=== PATIENT | male | born 1960 | race Caucasian/White ===

== ENCOUNTER 2017-06-23 20:23 | Observation (INO) | payer MEDICAID ==
[~2017-06-23] VITALS: Ht 175.3 cm; Wt 84.7 kg
[2017-06-23] MEDS ORDERED: ALBUTEROL/IPRATROPIUM 2.5MG/0.5MG, 3 ML ONE (20:50)
[2017-06-23] MEDS ORDERED: ALBUTEROL/IPRATROPIUM 2.5MG/0.5MG, 3 ML NPPB ONE (21:00)
[2017-06-23] MEDS ORDERED: ALBUTEROL SULFATE 2.5 MG/3 ML ONE (21:11)
[2017-06-23 21:14] LABS: HEMATOCRIT 49.3 % (39.2-51.8); HEMOGLOBIN 17.2 g/dL (13.7-18.0); WHITE BLOOD COUNT 3.8 x10^3/uL (3.4-10)
[2017-06-23 21:25] LABS: BLOOD UREA NITROGEN 19 mg/dL (7-18)
[2017-06-23] MEDS ORDERED: ALBUTEROL SULFATE 2.5 MG/3 ML NPPB ONE (21:30)
[2017-06-23] MEDS ORDERED: SODIUM CHLORIDE 0.9% 1,000ML IVBOLUS ONE (21:30)
[2017-06-23 21:33] LABS: ASPARTATE AMINO TRANSFERASE 36 U/L (15-37); IS PT STATUS REG ER OR PRE ER? YES
[2017-06-23] MEDS ORDERED: LORazepam 1MG TABLET PO ONE (22:30)
[2017-06-23] MEDS ORDERED: LORazepam 1MG TABLET ONE (22:42)
[2017-06-23] MEDS ORDERED: DOCUSATE 100 MG CAPSULE PO PRN (23:30)
[2017-06-23] MEDS ORDERED: AZITHROMYCIN 500 MG TABLET PO ONE (23:30)
[2017-06-23] MEDS ORDERED: ONDANSETRON ODT 4 MG PO PRN (23:30)
[2017-06-23] MEDS ORDERED: ENALAPRILAT 1.25 MG/ML, 2ML IVPush PRN (23:30)
[2017-06-23] MEDS ORDERED: ACETAMINOPHEN 325 MG TABLET PO PRN (23:30)
[2017-06-23] MEDS ORDERED: TEMAZEPAM 15 MG CAPSULE PO PRN (23:30)
[2017-06-23] MEDS ORDERED: GUAIFENESIN/DM 200-20MG, 10ML UDC PO PRN (23:30)
[2017-06-23] MEDS ORDERED: ALBUTEROL/IPRATROPIUM 2.5MG/0.5MG, 3 ML IPPB PRN (23:30)
[2017-06-23] MEDS: SODIUM CHLORIDE 0.9% 1,000 ML IV SCH (23:55)
[2017-06-24] MEDS: ENOXAPARIN 40 MG/0.4 ML SQ SCH ×2 (00:28→23:14)
[2017-06-24] MEDS: NICOTINE 21 MG/24 HR PATCH.TD24 TD SCH ×2 (00:28→23:13)
[2017-06-24 00:33] VITALS: BP 134/89
[2017-06-24 04:53] VITALS: BP 147/82
[2017-06-24 07:33] VITALS: BP 135/83
[2017-06-24] MEDS: SODIUM CHLORIDE 0.9% 1,000 ML IV SCH ×2 (08:50→15:28)
[2017-06-24] MEDS ORDERED: AZITHROMYCIN 250 MG TABLET PO SCH (09:00)
[2017-06-24] MEDS: ALBUTEROL/IPRATROPIUM 2.5MG/0.5MG, 3 ML NPPB SCH ×5 (09:01→22:35)
[2017-06-24] MEDS: methylPREDNISolone SOD SUCC 125 MG/2 ML IVPush SCH ×3 (12:00→23:14)
[2017-06-24 13:45] VITALS: BP 126/77
[2017-06-24 14:59] LABS: RAPID INFLUENZA A Negative (Negative); RAPID INFLUENZA B Negative (Negative)
[2017-06-24 19:30] VITALS: BP 131/84
[2017-06-25 03:00] VITALS: BP 115/70
[2017-06-25] MEDS: SODIUM CHLORIDE 0.9% 1,000 ML IV SCH (05:38)
[2017-06-25 06:12] LABS: HEMATOCRIT 49.3 % (39.2-51.8); HEMOGLOBIN 16.8 g/dL (13.7-18.0); WHITE BLOOD COUNT 6.7 x10^3/uL (3.4-10)
[2017-06-25 06:16] LABS: BLOOD UREA NITROGEN 17 mg/dL (7-18)
[2017-06-25] MEDS: methylPREDNISolone SOD SUCC 125 MG/2 ML IVPush SCH (06:26)
[2017-06-25 07:32] VITALS: BP 128/76
== END 2017-06-25 09:44 | disposition left against medical advice (07) ==
LOC: ED 21:53 → INTOOBSV 22:35 → EDIP 22:35 → 3NE 23:46
PROVIDERS: ADMIT Surgery; ATTEND Surgery
DX: J44.1 Chronic obstructive pulmonary disease with (acute) exacerbation (principal); R53.83 Other fatigue; E46 Unspecified protein-calorie malnutrition; I10 Essential (primary) hypertension; F17.210 Nicotine dependence, cigarettes, uncomplicated; Z91.19 Patient's noncompliance with other medical treatment and regimen; Z86.73 Personal history of transient ischemic attack (TIA), and cerebral infarction without residual deficits
CPT/HCPCS: 36415; 71020; 80048; 80053; 80061; 83735; 84100; 84484; 85025; 87400; 93005; 94640; 96361; 96372; 96374; 96376; 99291; G0378; J1650; J2930; J7030; J7512; J7613; J7620

== ENCOUNTER 2018-02-03 18:51 | Emergency (ER) | payer MEDICAID ==
[~2018-02-03] VITALS: Ht 172.7 cm; Wt 80.9 kg
[2018-02-03 18:55] VITALS: BP 122/80
[2018-02-03] MEDS ORDERED: FAMOTIDINE 20 MG TABLET ONE (19:07)
[2018-02-03] MEDS ORDERED: FAMOTIDINE 20 MG TABLET PO ONE (19:30)
== END 2018-02-03 19:22 | disposition home or self-care (01) ==
LOC: ED 19:00
DX: T14.8XXA Other injury of unspecified body region, initial encounter (principal); J44.9 Chronic obstructive pulmonary disease, unspecified; F17.210 Nicotine dependence, cigarettes, uncomplicated; W57.XXXA Bitten or stung by nonvenomous insect and other nonvenomous arthropods, initial encounter; Y93.89 Activity, other specified; Y92.830 Public park as the place of occurrence of the external cause; Y99.8 Other external cause status
CPT/HCPCS: 99284; J7512; Q0177

== ENCOUNTER 2020-03-06 13:51 | Emergency (ER) | payer MEDICAID ==
[~2020-03-06] VITALS: Ht 172.7 cm; Wt 83.2 kg
[2020-03-06 14:41] LABS: BASOPHILS # (AUTO) 0.03 x10^3/uL (0-0.1); BASOPHILS % (AUTO) 0 % (0-1); EOSINOPHILS # (AUTO) 0.16 x10^3/uL (0-0.4); EOSINOPHILS % (AUTO) 2 % (1-7); LYMPHOCYTES # (AUTO) 2.21 x10^3/uL (1-3.4); LYMPHOCYTES % (AUTO) 30 % (22-44); MD NO; MEAN CORPUSCULAR HEMOGLOBIN 30.8 pg (27.5-34.5); MEAN CORPUSCULAR HGB CONC 33.7 g/dL (33.2-36.2); MEAN CORPUSCULAR VOLUME 91.5 fL (81-97); MEAN PLATELET VOLUME 7.6 fL (7.4-10.4); MONOCYTES # (AUTO) 0.69 x10^3/uL (0.2-0.8); MONOCYTES % (AUTO) 10 % (2-9); NEUTROPHILS # (AUTO) 4.25 x10^3/uL (1.8-6.8); NEUTROPHILS % (AUTO) 58 % (42-75); PLATELET COUNT 263 x10^3/uL (130-400); RED BLOOD COUNT 5.29 x10^6/uL (4.38-5.82); RED CELL DISTRIBUTION WIDTH 13.2 % (9.4-14.8)
[2020-03-06 14:53] LABS: TROPONIN I < 0.015 ng/mL (0.000-0.045)
[2020-03-06 15:04] LABS: ANION GAP 8 mmol/L (5-15); CALCIUM 9.3 mg/dL (8.5-10.1); CHLORIDE 108 mmol/L (98-107); CREATININE 1.66 mg/dL (0.7-1.3)
[2020-03-06 15:38] VITALS: BP 142/95
--- NOTE | 2020-03-06 15:39 | NUR ---
TASK RN: PT RESTING IN [facility] ON MONITOR, NO NEEDS AT THIS TIME, CALL LIGHT WITHIN REACH. AWAITING RECHECK
== END 2020-03-06 16:12 | disposition home or self-care (01) ==
LOC: ED 15:50
DX: R07.89 Other chest pain (principal); L03.114 Cellulitis of left upper limb; J44.9 Chronic obstructive pulmonary disease, unspecified; F17.290 Nicotine dependence, other tobacco product, uncomplicated; Z86.73 Personal history of transient ischemic attack (TIA), and cerebral infarction without residual deficits; Z90.89 Acquired absence of other organs
CPT/HCPCS: 36415; 71045; 80048; 83880; 84484; 85025; 93005; 99285

== ENCOUNTER 2020-03-13 06:58 | Emergency (ER) | payer MEDICAID ==
[~2020-03-13] VITALS: Ht 175.3 cm; Wt 84.0 kg
[2020-03-13] MEDS ORDERED: SODIUM CHLORIDE 0.9% 1,000ML IV ONE (07:30)
[2020-03-13] MEDS ORDERED: HYDROmorphone 1 MG/ML, 1ML INJ IVPush PRN (07:30)
[2020-03-13] MEDS ORDERED: KETOROLAC 30 MG/1 ML IVPush ONE (07:30)
[2020-03-13] MEDS ORDERED: SODIUM CHLORIDE FLUSH 10ML SYR IVF ONE (07:30)
[2020-03-13] MEDS ORDERED: ONDANSETRON 2MG/ML, 2ML IVPush ONE (07:30)
[2020-03-13] MEDS ORDERED: KETOROLAC 30 MG/1 ML ONE (07:36)
[2020-03-13] MEDS ORDERED: ONDANSETRON 2MG/ML, 2ML ONE (07:36)
[2020-03-13] MEDS ORDERED: HYDROmorphone 1 MG/ML, 1ML INJ ONE (07:36)
[2020-03-13 07:55] LABS: BASOPHILS # (AUTO) 0.01 x10^3/uL (0-0.1); BASOPHILS % (AUTO) 0 % (0-1); EOSINOPHILS # (AUTO) 0.15 x10^3/uL (0-0.4); EOSINOPHILS % (AUTO) 2 % (1-7); LYMPHOCYTES # (AUTO) 1.39 x10^3/uL (1-3.4); LYMPHOCYTES % (AUTO) 21 % (22-44); MD NO; MEAN CORPUSCULAR HEMOGLOBIN 30.5 pg (27.5-34.5); MEAN CORPUSCULAR HGB CONC 33.1 g/dL (33.2-36.2); MEAN CORPUSCULAR VOLUME 92.2 fL (81-97); MEAN PLATELET VOLUME 7.6 fL (7.4-10.4); MONOCYTES # (AUTO) 0.49 x10^3/uL (0.2-0.8); MONOCYTES % (AUTO) 7 % (2-9); NEUTROPHILS # (AUTO) 4.53 x10^3/uL (1.8-6.8); NEUTROPHILS % (AUTO) 69 % (42-75); PLATELET COUNT 218 x10^3/uL (130-400); RED CELL DISTRIBUTION WIDTH 13.4 % (9.4-14.8)
--- NOTE | 2020-03-13 08:00 | NUR ---
IV STARTED. PT MEDICATED FOR PAIN AND FLUIDS HANGING PER EMAR. PT AWARE OFNEED FOR URINE SAMPLE, CUP AT BEDSIDE. LABS HAVE BEEN DRAWN. PT GOING TO CT AT THIS TIME.
[2020-03-13 08:04] LABS: ALBUMIN 3.3 g/dL (3.4-5.0); ANION GAP 3 mmol/L (5-15); CALCIUM 9.1 mg/dL (8.5-10.1); CHLORIDE 108 mmol/L (98-107)
[2020-03-13 08:09] LABS: ALANINE AMINOTRANSFERASE 22 U/L (12-78); ALKALINE PHOSPHATASE 91 U/L (45-117); BILIRUBIN,TOTAL 0.6 mg/dL (0.2-1.0); CREATININE 1.26 mg/dL (0.7-1.3); TOTAL PROTEIN 6.5 g/dL (6.4-8.2)
--- NOTE | 2020-03-13 08:50 | NUR ---
PT ABLE TO AMBULATE STEADILY TO BATHROOM TO GIVE URINE SAMPLE. URINE WALKED TO LAB. PT PLACED BACK ON MONITORS. NO C/O PAIN AT THIS TIME. WILL CONTINUE TO MONITOR.
[2020-03-13 09:11] LABS: MICROSCOPIC NOT IND
[2020-03-13 11:31] VITALS: BP 145/94
== END 2020-03-13 11:42 | disposition home or self-care (01) ==
LOC: ED 07:24
DX: N20.1 Calculus of ureter (principal); M54.5 Low back pain; J44.9 Chronic obstructive pulmonary disease, unspecified; Z86.73 Personal history of transient ischemic attack (TIA), and cerebral infarction without residual deficits; Z90.49 Acquired absence of other specified parts of digestive tract; Z88.0 Allergy status to penicillin
CPT/HCPCS: 36415; 74176; 80053; 81003; 85025; 96361; 96374; 96375; 99285; J1170; J1885; J2405; J7030

== ENCOUNTER 2020-03-29 12:32 | Emergency (ER) | payer MEDICAID ==
[~2020-03-29] VITALS: Ht 175.3 cm; Wt 84.8 kg
[2020-03-29] MEDS ORDERED: SODIUM CHLORIDE FLUSH 10ML SYR IVF ONE (13:00)
[2020-03-29] MEDS ORDERED: MORPHINE SULFATE 4 MG/ML, 1ML IVPush PRN (13:00)
[2020-03-29] MEDS ORDERED: ONDANSETRON 2MG/ML, 2ML IVPush ONE (13:00)
--- NOTE | 2020-03-29 13:00 | NUR ---
C/O RLQ ABD PAIN X2 WEEKS THAT MOVES TO LOWER BACK. FALL PRECAUTIONS IN PLACE. CALL LIGHT WITHIN REACH.
[2020-03-29 13:12] LABS: BASOPHILS # (AUTO) 0.03 x10^3/uL (0-0.1); BASOPHILS % (AUTO) 1 % (0-1); EOSINOPHILS # (AUTO) 0.12 x10^3/uL (0-0.4); EOSINOPHILS % (AUTO) 2 % (1-7); LYMPHOCYTES # (AUTO) 1.68 x10^3/uL (1-3.4); LYMPHOCYTES % (AUTO) 29 % (22-44); MD NO; MEAN CORPUSCULAR HEMOGLOBIN 30.9 pg (27.5-34.5); MEAN CORPUSCULAR HGB CONC 33.7 g/dL (33.2-36.2); MEAN CORPUSCULAR VOLUME 91.9 fL (81-97); MEAN PLATELET VOLUME 7.5 fL (7.4-10.4); MONOCYTES # (AUTO) 0.43 x10^3/uL (0.2-0.8); MONOCYTES % (AUTO) 7 % (2-9); NEUTROPHILS # (AUTO) 3.62 x10^3/uL (1.8-6.8); NEUTROPHILS % (AUTO) 62 % (42-75); PLATELET COUNT 232 x10^3/uL (130-400); RED BLOOD COUNT 5.13 x10^6/uL (4.38-5.82); RED CELL DISTRIBUTION WIDTH 13.6 % (9.4-14.8)
[2020-03-29 13:19] LABS: ALANINE AMINOTRANSFERASE 24 U/L (12-78); ALBUMIN 3.7 g/dL (3.4-5.0); ANION GAP 7 mmol/L (5-15); CALCIUM 8.5 mg/dL (8.5-10.1); CHLORIDE 110 mmol/L (98-107); CREATININE 1.18 mg/dL (0.7-1.3)
[2020-03-29 13:22] LABS: ALKALINE PHOSPHATASE 93 U/L (45-117); BILIRUBIN,TOTAL 0.6 mg/dL (0.2-1.0); TOTAL PROTEIN 6.8 g/dL (6.4-8.2)
[2020-03-29] MEDS ORDERED: ONDANSETRON 2MG/ML, 2ML ONE (13:28)
[2020-03-29] MEDS ORDERED: MORPHINE SULFATE 4 MG/ML, 1ML ONE (13:29)
--- NOTE | 2020-03-29 13:49 | NUR ---
TASK RN: PIV STARTED AND PT MEDICATED PER EMAR. PROVIDED URINAL AND EDUCATED ON NEED FOR SAMPLE. RESP EVEN AND UNLABORED, NADN. CALL LIGHT IN REACH, SIDE RAILS UPX2.
--- NOTE | 2020-03-29 14:09 | NUR ---
PT RESTING ON GURNEY REPORTS PAIN RELIEF AFTER PAIN MEDS PAIN SCALE 2/10. VSS. FALL PRECAUTIONS IN PLACE.
[2020-03-29 15:21] LABS: MICROSCOPIC NOT IND
--- NOTE | 2020-03-29 15:26 | NUR ---
BREAK RN: PT SLEEPING ON GURNEY W/ CALL LIGHT IN REACH AND SIDE RAILS UPX2. VSS, RAKAN. AWAITING UA RESULTS.
--- NOTE | 2020-03-29 15:29 | NUR ---
BREAK RN: ALL TESTS RESULTED. PT IS UP FOR RECHECK AT THIS TIME.
--- NOTE | 2020-03-29 15:36 | NUR ---
SHREYA RN: AT BEDSIDE FOR EVAL.
[2020-03-29 16:07] LABS: TROPONIN I < 0.015 ng/mL (0.000-0.045)
[2020-03-29 16:25] VITALS: BP 138/84
== END 2020-03-29 16:48 | disposition home or self-care (01) ==
LOC: ED 12:52
DX: S29.012A Strain of muscle and tendon of back wall of thorax, initial encounter (principal); R10.9 Unspecified abdominal pain; R94.31 Abnormal electrocardiogram [ECG] [EKG]; J44.9 Chronic obstructive pulmonary disease, unspecified; Z86.73 Personal history of transient ischemic attack (TIA), and cerebral infarction without residual deficits; Z90.89 Acquired absence of other organs; X58.XXXA Exposure to other specified factors, initial encounter; Y93.89 Activity, other specified; Y92.89 Other specified places as the place of occurrence of the external cause; Y99.8 Other external cause status
CPT/HCPCS: 36415; 76700; 80053; 81003; 83690; 84484; 85025; 85379; 85651; 93005; 96374; 96375; 99285; J2270; J2405

== ENCOUNTER 2021-01-12 01:04 | Emergency (ER) | payer MEDICAID ==
[~2021-01-12] VITALS: Ht 172.7 cm; Wt 81.0 kg
--- NOTE | 2021-01-12 02:06 | NUR ---
TASK RN: PT SITTING UP IN [facility], SHANELLE NOTED. PT C/O INTERMITTENT L CHEST PAIN "ACHING" THAT RADIATES TO L SHOULDER. PAIN IS NOT REPRODUCABLE; INTERMITTENT WO AGGRAVATING OR RELIEVING FACTORS. PAIN NOW 5/10; DENIES ASSOCIATED N/V/DIAPHORESIS/SOB/PRODUCTIVE COUGH. DENIES ORTHOPNEA OR EDEMA. DENIES CARDIAC HX. NO ASA TODAY. HX METH USE, LAST USE ONE WEEK AGO. BP/SPO2/ECG MONITORING IN PLACE. NSR ON MONITOR. VSS. AWAITING ERP EVAL.
[2021-01-12] MEDS ORDERED: ONDANSETRON 2MG/ML, 2ML ONE (02:23)
[2021-01-12] MEDS ORDERED: MORPHINE SULFATE 4 MG/ML, 1ML ONE (02:24)
[2021-01-12] MEDS ORDERED: ASPIRIN 81 MG TABLET CHEW ONE (02:26)
[2021-01-12] MEDS ORDERED: ONDANSETRON 2MG/ML, 2ML IVPush ONE (02:30)
[2021-01-12] MEDS ORDERED: ASPIRIN 81 MG TABLET CHEW PO ONE (02:30)
[2021-01-12] MEDS ORDERED: MORPHINE SULFATE 4 MG/ML, 1ML IVPush PRN (02:30)
[2021-01-12 02:37] LABS: ALANINE AMINOTRANSFERASE 27 U/L (12-78); ALBUMIN 3.9 g/dL (3.4-5.0); ANION GAP 2 mmol/L (5-15); CHLORIDE 111 mmol/L (98-107); CREATININE 1.43 mg/dL (0.7-1.3)
[2021-01-12 02:41] LABS: ALKALINE PHOSPHATASE 103 U/L (45-117); BILIRUBIN,TOTAL 0.7 mg/dL (0.2-1.0); TOTAL PROTEIN 7.5 g/dL (6.4-8.2); TROPONIN I < 0.015 ng/mL (0.000-0.045)
[2021-01-12 02:46] LABS: BASOPHILS % (AUTO) 1 % (0-1); EOSINOPHILS % (AUTO) 3 % (1-7); LYMPHOCYTES % (AUTO) 35 % (22-44); MEAN CORPUSCULAR HEMOGLOBIN 31.6 pg (27.5-34.5); MEAN CORPUSCULAR HGB CONC 34.6 g/dL (33.2-36.2); MEAN PLATELET VOLUME 7.8 fL (7.4-10.4); MONOCYTES % (AUTO) 12 % (2-9); NEUTROPHILS % (AUTO) 49 % (42-75); PLATELET COUNT 214 x10^3/uL (130-400); RED BLOOD COUNT 5.49 x10^6/uL (4.38-5.82)
--- NOTE | 2021-01-12 03:44 | NUR ---
Patient is resting comfortably in bed. Bed in lowest, rails engaged, call light on lap. Vital Signs within normal limits. WCTM.
[2021-01-12 04:19] VITALS: BP 143/96
== END 2021-01-12 04:28 | disposition left against medical advice (07) ==
LOC: ED 04:23
DX: K85.00 Idiopathic acute pancreatitis without necrosis or infection (principal); R07.89 Other chest pain; F17.210 Nicotine dependence, cigarettes, uncomplicated; J44.9 Chronic obstructive pulmonary disease, unspecified; Z86.73 Personal history of transient ischemic attack (TIA), and cerebral infarction without residual deficits; Z90.89 Acquired absence of other organs
CPT/HCPCS: 36415; 71045; 80053; 83690; 83880; 84484; 85025; 93005; 96374; 96375; 99285; 99406; J2270; J2405